=== PATIENT | male | born 1950 | race Caucasian/White ===

== ENCOUNTER 2018-10-10 21:35 | Emergency (ER) | payer MEDICARE, OTHER ==
[~2018-10-10] VITALS: Ht 175.3 cm; Wt 72.6 kg
[2018-10-10 21:59] VITALS: BP 132/80
[2018-10-10] MEDS ORDERED: CEPHALEXIN500 MG ORAL (22:28)
--- NOTE | 2018-10-10 22:29 | Emergency Room Report ---
History of Present Illness General Chief Complaint: Laceration Source: Patient Present Illness HPI This is a 67-year-old male with no past medical history. He presents with chief complaint of laceration to his left knee. He was on the escalator any trip and landed on his knee. He sustained a laceration to his left knee. This occurred a few hours ago. No other injury. Was bleeding. No nausea no vomiting. Able to walk without any problem. He does not want tetanus shot. Minimal pain. Allergies: Coded Allergies: No Known Allergies (Unverified , 10/10/18) Patient History Past Medical History: see triage record, old chart reviewed Past Surgical History: none Pertinent Family History: none Social History: Denies: alcohol use Immunizations: other Nursing Documentation-[facility] Past Medical History: No Stated History Review of Systems Eye: Denies: eye pain, blurred vision ENT: Denies: ear pain, nose congestion, throat swelling Respiratory: Denies: cough, shortness of breath Cardiovascular: Denies: chest pain, palpitations Gastrointestinal: Denies: abdominal pain, diarrhea, nausea, vomiting Musculoskeletal: Denies: back pain, joint pain Skin: Denies: rash Neurological: Denies: headache, numbness Endocrine: Denies: increased thirst, increased urine Hematologic/Lymphatic: Denies: easy bruising All Other Systems: negative except mentioned in HPI Physical Exam Vital Signs Date Time Temp Pulse Resp B/P (MAP) Pulse Ox O2 Delivery O2 Flow Rate FiO2 10/10/18 21:47 98.4 66 16 122/75 98 Room Air vitals normal Sp02 EP Interpretation: reviewed, normal General Appearance: well appearing, no apparent distress, alert Head: normocephalic, atraumatic Eyes: bilateral eye PERRL, bilateral eye EOMI ENT: hearing grossly normal, normal pharynx Neck: full range of motion, supple, no meningismus Respiratory: chest non-tender, lungs clear, normal breath sounds Cardiovascular #1: regular rate, rhythm, no murmur Gastrointestinal: normal bowel sounds, non tender, no mass, no organomegaly, no bruit, non-distended Musculoskeletal: back normal, gait/station normal, normal range of motion, other - Left knee: There is a 4 cm laceration. Contused tissue. Slight flap. No foreign body. Full range of motion of the knee. No bony deformity. No bony pain. Sensation normal Psychiatric: mood/affect normal Skin: warm/dry Procedures Laceration/Wound Repair Laceration/Wound Repair : Consent: Verbal Wound Location: lower extremity Wound's Depth, Shape: superficial, irregular, flap, contused tissue Wound Length (cm): 4 Wound Explored: clean Irrigated w/ Saline (ccs): 1000 Betadine Prep?: Yes Anesthesia: 1% Lidocaine Volume Anesthetic (ccs): 4 Wound Debrided: minimal Wound Repaired With: sutures Suture Size/Type: 3:0, proline Number of Sutures: 5 Patient Tolerated: Well Complications: None Medical Decision Making Diagnostic Impression: Primary Impression: Laceration ER Course Patient with a laceration to the left knee. No foreign body. No bony injury. No tendon laceration. We'll discharge home. Last Vital Signs Date Time Temp Pulse Resp B/P (MAP) Pulse Ox O2 Delivery O2 Flow Rate FiO2 10/10/18 21:59 98.5 89 16 132/80 98 Room Air Status: improved Disposition: HOME, SELF-CARE Condition: Stable Scripts Cephalexin* (KEFLEX*) 500 Mg Capsule 500 MG ORAL TID, #21 CAP Prov: Steven Albert MD 10/10/18 Patient Instructions: Laceration Care, Adult Additional Instructions: Follow-up with your doctor in 7-10 days. Suture out in 10 days. Return if symptom worsen. Steven Albert MD Oct 10, 2018 22:29
[2018-10-10] MEDS ORDERED: Bacitracin Oint UD TOPIC ONE (22:30)
[2018-10-10 22:39] VITALS: BP 130/68
[2018-10-10 22:40] VITALS: BP 130/68
== END 2018-10-10 22:41 | disposition home or self-care (01) ==
LOC: EMR 22:27
DX: S81.812A Laceration without foreign body, left lower leg, initial encounter (principal); W01.0XXA Fall on same level from slipping, tripping and stumbling without subsequent striking against object, initial encounter; Y92.89 Other specified places as the place of occurrence of the external cause
CPT/HCPCS: 99283

== ENCOUNTER 2019-11-22 14:10 | Observation (INO) | payer MEDICARE, OTHER ==
[~2019-11-22] VITALS: Ht 175.3 cm; Wt 74.8 kg
[~2019-11-22 14:10] MED LIST: CEPHALEXIN500 MG ORAL; IBUPROFEN600 MG ORAL; LIDODERM700 M1 TOPIC; NKM; PREDNISONE20 MG ORAL; ROBAXIN-750750 MG PO
[2019-11-22 14:30] VITALS: BP 121/81
[2019-11-22] MEDS ORDERED: Nitroglycerin Subl 0.4mg tab SL PRN (14:30)
[2019-11-22] MEDS ORDERED: Morphine Sulfate 4mg/ml Inj (IV USE ONLY) IVP ONE (14:30)
--- NOTE | 2019-11-22 14:32 | NUR ---
ED Nurse Note: Pt ambulated into ED from home, returning from earlier ED visit in which pt CO chest pain 5/10 that started at 3am today. Pt reports feeling pressure and pain radiating to right flank. Pt denies injury to area. Pt denies previous cardiac history. Pt reports currently taking prednisone for neck pain for one week. Pt aao x 4.
--- NOTE | 2019-11-22 14:45 | Emergency Room Report ---
History of Present Illness General Chief Complaint: Chest Pain Source: Patient Present Illness [facility] Patient was admitted and then signed out AGAINST MEDICAL ADVICE for rule out acute coronary syndrome. His pain initially was 5/10 that woke him up at 3 AM. After nitroglycerin the pain decreased to 2/10. He left with nitroglycerin paste. He had 2 make some financial arrangements. The pain has now increased to 5/10 again. He also points to an area on his lateral chest that is also tender with movement and with palpation but this is different than the pressure that he feels. Initial troponin was negative. Initial EKG showed right bundle branch block with bradycardia. Chest x-ray was negative. Risk factors is smoking. The patient is taking prednisone for neck osteoarthritis. No fevers, chills, sore throat, palpitations, nausea, vomiting, diarrhea, dysuria, abdominal pain, shortness of breath, rashes, depression, anxiety, visual changes, dizziness, headache. Allergies: Coded Allergies: No Known Allergies (Unverified , 10/10/18) Patient History Past Medical History: see triage record Social History: Reports: smoking; Denies: alcohol use, drug use Social History Narrative massage therapist Reviewed Nursing Documentation: PMH: Agreed; PSxH: Agreed Nursing Documentation-PMH Past Medical History: No History, Except For Review of Systems All Other Systems: negative except mentioned in HPI Physical Exam Vital Signs Date Time Temp Pulse Resp B/P (MAP) Pulse Ox O2 Delivery O2 Flow Rate FiO2 11/22/19 14:30 61 21 Room Air 11/22/19 14:30 97.8 121/81 98 Sp02 EP Interpretation: reviewed, normal General Appearance: well appearing, no apparent distress, GCS 15 Head: normocephalic Eyes: bilateral eye normal inspection, bilateral eye PERRL, bilateral eye EOMI ENT: moist mucus membranes Neck: supple Respiratory: chest non-tender, lungs clear, normal breath sounds Cardiovascular #1: regular rate, rhythm Cardiovascular #2: 2+ radial (R) Gastrointestinal: normal inspection, normal bowel sounds, non tender, no mass, non-distended Musculoskeletal: back normal, normal range of motion, no calf tenderness, gait/ station normal Neurologic: alert, oriented x3, grossly normal Psychiatric: mood/affect normal Skin: no rash, palpation normal Medical Decision Making Diagnostic Impression: Primary Impression: Chest pain Qualified Codes: R07.9 - Chest pain, unspecified Additional Impression: Osteoarthritis of neck Qualified Codes: M47.812 - Spondylosis without myelopathy or radiculopathy, cervical region ER Course Patient returns with increased chest pain after signing out AGAINST MEDICAL ADVICE. Repeat EKG and troponin needs to be performed. Nitroglycerin will be administered as pain is increased at this time. In addition morphine and Pepcid are ordered. Patient still needs to be admitted for observation. EKG 1427 sinus bradycardia 59 with right bundle branch block. Chest x-ray from before no infiltrates or acute findings. Repeat troponin negative. Patient pain-free with treatment. Laboratory Tests Test 11/22/19 14:52 Troponin I 0.000 ng/mL (0.000-0.056) EKG Diagnostic Results Rate: bradycardiac Rhythm: NSR ST Segments: no acute changes - Bundle-branch block ASA given to the pt in ED: Yes - During previous encounter Rhythm Strip Diag. Results EP Interpretation: yes Rhythm: no PVC's, no ectopy, other - Bradycardia Chest X-Ray Diagnostic Results Chest X-Ray Diagnostic Results : Chest X-Ray Ordered: Yes # of Views/Limited/Complete: 1 View Indication: Chest Pain EP Interpretation: Yes Interpretation: no consolidation, no effusion, no pneumothorax Impression: No acute disease Electronically Signed by: Electronically signed by Girish Leslie MD Last Vital Signs Date Time Temp Pulse Resp B/P (MAP) Pulse Ox O2 Delivery O2 Flow Rate FiO2 11/22/19 18:35 97.8 55 16 117/77 98 Room Air Status: improved Disposition: PLACE IN OBSERVATION Condition: Serious Girish Leslie MD Nov 22, 2019 14:44
--- NOTE | 2019-11-22 15:05 | NUR ---
ED Nurse Note: Pt recieved all medications, tolerated well. Pt recieved Nitro SL 0.4mg, tolerated well. HR 65, BP 125/77, pt denies headache.
[2019-11-22 15:30] VITALS: BP 115/69
--- NOTE | 2019-11-22 16:00 | NUR ---
ED Nurse Note: ERMD at bedside
[2019-11-22 17:57] VITALS: BP 122/82
--- NOTE | 2019-11-22 18:00 | NUR ---
ED Nurse Note: Report given to JARROD Camachotilt wall supervisor
[2019-11-22 18:35] VITALS: BP 117/77
--- NOTE | 2019-11-22 18:44 | NUR ---
ED Nurse Note: Pt transferred to Telemetry with EMT and RN
--- NOTE | 2019-11-22 19:35 | NUR ---
NURSE NOTES: Received pt and repot from JARROD Garrison. Observed pt resting in bed with both eyes open and Dr. Jurado at bedside. Pt is A/Ox4. campus monitor is in placed; pt is NSR. IV site intact, asymptomatic, and patent. Bed is in the lowest position and locked. Call light and beside table is within reach. No signs/symptoms of acute distress noted at this time. Will contact Dr. Alva for admission orders.
--- NOTE | 2019-11-22 19:47 | Consultation ---
Consult Note Consult Note Cardiology for Dr. Barakat Full note dictated # [id number] Helga Jurado MD Nov 22, 2019 19:47
[2019-11-22 20:00] VITALS: BP 132/87
--- NOTE | 2019-11-22 20:26 | NUR ---
NURSE NOTES: Received orders from Dr. Alva and Dr. Jurado. Will note and carry out.
[2019-11-23] VITALS: BP 136/84
--- NOTE | 2019-11-23 03:30 | NUR ---
NURSE NOTES: Observed pt asleep in bed. No signs/symptoms of acute distress noted at this time. Will continue plan of care.
[2019-11-23 04:00] VITALS: BP 129/82
--- NOTE | 2019-11-23 07:57 | NUR ---
NURSE NOTES: Received the patient walking in his room, done with breakfast, A&OX4, pt denies chest pain, pt stated that he wanted to leave today. No signs of respiratory distress noted. Bed on lowest position, call light within reach.
--- NOTE | 2019-11-23 07:59 | NUR ---
HAND-OFF: Report given to JARROD Camacho. Plan of care endorsed.
[2019-11-23 08:00] VITALS: BP 141/95
[2019-11-23 08:26] LABS: BASOPHILS % (AUTO) 0.6 % (0.0-2.0); EOSINOPHILS % (AUTO) 0.5 % (0.0-3.0); HEMATOCRIT 42.8 % (42.0-52.0); HEMOGLOBIN 14.8 G/DL (14.2-18.0); LYMPHOCYTES % (AUTO) 19.8 % (20.0-45.0); MEAN CORPUSCULAR VOLUME 92 FL (80-99); MONOCYTES % (AUTO) 5.9 % (1.0-10.0); NEUTROPHILS % (AUTO) 73.2 % (45.0-75.0); PLATELET COUNT 307 K/UL (150-450); RED BLOOD COUNT 4.67 M/UL (4.70-6.10); RED CELL DISTRIBUTION WIDTH 12.2 % (11.6-14.8); WHITE BLOOD COUNT 7.8 K/UL (4.8-10.8)
[2019-11-23] MEDS ORDERED: Aspirin EC 81mg tab ORAL SCH (09:00)
[2019-11-23 09:41] LABS: ALANINE AMINOTRANSFERASE 46 U/L (12-78); ALBUMIN 3.6 G/DL (3.4-5.0); ALBUMIN/GLOBULIN RATIO 1.1 (1.0-2.7); ALKALINE PHOSPHATASE 71 U/L (46-116); ANION GAP 5 mmol/L (5-15); ASPARTATE AMINO TRANSFERASE 18 U/L (15-37); BILIRUBIN,TOTAL 0.5 MG/DL (0.2-1.0); BLOOD UREA NITROGEN 18 mg/dL (7-18); CALCIUM 9.1 MG/DL (8.5-10.1); CARBON DIOXIDE 32 MMOL/L (21-32); CHLORIDE 105 MMOL/L (98-107); CHOLESTEROL 257 MG/DL (< 200); CREATININE 1.1 MG/DL (0.55-1.30); HDL CHOLESTEROL 64 MG/DL (40-60); POTASSIUM 4.6 MMOL/L (3.5-5.1); SODIUM 142 MMOL/L (136-145); TRIGLYCERIDES 94 MG/DL (30-150)
--- NOTE | 2019-11-23 10:00 | NUR ---
NURSE NOTES: Pt decided to leave AMA d/t to feeling stable. Pt had also left ED during admission yesterday then came back. This morning pt express that he did not want to stay and will leaving before 10am. Iv was removed, ID band removed, no meds given, pt signed AMA form, pt was explained the benefits of staying and seeing the doctor before he leave, pt still refused to stay, pt stated he will be fine, got dressed and left on his own will.
--- NOTE | 2019-11-23 10:10 | NUR ---
AMA: SEE AMA FORM.
--- NOTE | 2019-11-25 13:01 | Discharge Summary ---
DATE OF ADMISSION: 11/22/2019 DATE OF DISCHARGE: 11/23/2019 He left AMA. PERTINENT HISTORY: The patient presents with chest pain. See details. COURSE IN THE HOSPITAL: The patient had a stable course with normal troponins. He left early in the morning on 11/23/2019 AMA. FINAL DIAGNOSES: 1. Chest pain, possible acute coronary syndrome with negative troponins. 2. Hyperlipidemia. 3. History of gastroesophageal reflux. DISCHARGE DISPOSITION: The patient left AMA. Jeovanny Alva M.D. DR: KARTIK JOB#: [id number] CC:
--- NOTE | 2019-11-25 15:45 | Consultation ---
DATE OF CONSULTATION: 11/22/2019 CARDIOLOGY CONSULTATION This is coverage for Dr. Barakat. CONSULTING PHYSICIAN: Helga Jurado M.D. REFERRING PHYSICIAN: Jeovanny Alva M.D. REASON FOR CONSULT: Chest pain. HISTORY OF PRESENT ILLNESS: The patient is a 68-year-old man with history of recent neck pain treated with high-dose oral steroids over the past week (taking 40 mg prednisone twice daily). He woke up at 3 o'clock on the day of admission with left-sided chest pressure. He presented to the emergency room. The pain improved with sublingual nitroglycerin per the emergency room report; however, he signed out against medical advice. He then returned and is being admitted for further treatment. He has no chest pain currently. There is no history of coronary artery disease. He has hyperlipidemia, not on treatment. He denies diabetes, hypertension, family history of premature coronary artery disease, or tobacco use. MEDICATIONS AT HOME: Prednisone 40 mg twice daily, ibuprofen 600 mg 1 to 2 tablets daily. ALLERGIES: No known drug allergies. PAST MEDICAL HISTORY: As noted above. FAMILY HISTORY: Positive for hypertension and hyperlipidemia in the patient's parents. No family history of premature coronary artery disease. SOCIAL HISTORY: The patient has no history of tobacco or drug use. Occasional, social alcohol. PHYSICAL EXAMINATION: VITAL SIGNS: Blood pressure is 117/77, pulse 55, regular, respirations 20, afebrile. GENERAL: Alert, well-developed white male, in no acute distress. HEENT: Normocephalic, atraumatic. Pupils are equal, round, and reactive to light. Sclerae anicteric. Oral mucosa moist. NECK: Supple. There is no jugular venous distention. Carotid pulses are 2+ bilaterally without bruits. LUNGS: Clear to auscultation bilaterally. HEART: Regular. Bradycardic. S1-S2 with no murmur or S3. ABDOMEN: Soft, nontender. No palpable mass. EXTREMITIES: No cyanosis, clubbing, or edema. Distal lower extremity pulses are 2+ bilaterally. DIAGNOSTIC DATA: EKG shows sinus bradycardia, rate of 59 beats per minute, right bundle-branch block. [place] +[address]-segment or T-wave changes. LABORATORY DATA: Include troponin drawn at 14:52 today 0. Hemoglobin, hematocrit, and chemistries are not available on the computer or in the chart for this current hospitalization; however, on the hospitalization that he signed out against medical advice, hemoglobin was 15.5, white blood count 9600, platelets were 311,000. Sodium 137, potassium 4.2, chloride 101, bicarbonate 30, BUN 20, creatinine 1.0. Chest x-ray shows cardiomegaly. No infiltrates, effusions, or edema. ASSESSMENT AND RECOMMENDATIONS: The patient is a 68-year-old man with no previous history of coronary disease and minimal coronary risk factors who was admitted with chest pain. There are some atypical features and that the symptoms occurred at rest. However, they did improve with sublingual nitroglycerin. He will be admitted to telemetry. Myocardial infarction will be ruled out with serial cardiac enzymes and EKGs. His EKG shows a right bundle-branch block, . An echo will be obtained to evaluate left ventricular function. If he rules out, a stress test can be done to rule out ischemia. Dr. Barakat who I am covering for will continue to follow the patient starting on 11/23/2019. Thank you for involving us in his care. Helga Jurado M.D. DR: DEREK JOB#: [id number] CC:
== END 2019-11-23 10:03 | disposition left against medical advice (07) ==
LOC: EMR 14:50 → INTOOBSV 14:57 → 2E 14:57 → EDBEDREQ 17:39
DX: I24.9 Acute ischemic heart disease, unspecified (principal); E78.5 Hyperlipidemia, unspecified; K21.9 Gastro-esophageal reflux disease without esophagitis; I45.10 Unspecified right bundle-branch block
CPT/HCPCS: 36415; 80053; 80061; 84484 ×2; 85025; 93005 ×2; 96374; 96375; 99285; J2270; J2405; S0028